=== PATIENT | female | born 1980 | race Caucasian/White ===

== ENCOUNTER 2017-09-25 07:15 | Day surgery (SDC) | payer BC ==
[~2017-09-25] VITALS: Ht 160 cm; Wt 70.0 kg
[~2017-09-25 07:15] MED LIST: ALBU18HF
[2017-09-25 07:49] VITALS: BP 120/84
[2017-09-25] MEDS ORDERED: LACTATED RINGERS 1,000 ML IV SCH (07:58)
[2017-09-25] MEDS ORDERED: LIDOCAINE 1%, 2ML SQ PRN (08:00)
[2017-09-25] MEDS ORDERED: LIDOCAINE 1%, 2ML ONE (08:04)
[2017-09-25] MEDS ORDERED: L.AC1CAP6 PO (08:16)
[2017-09-25] MEDS ORDERED: HYDR25TA11 PO (08:16)
[2017-09-25] MEDS ORDERED: PROPOFOL 50 ML ONE (08:48)
[2017-09-25] MEDS ORDERED: MIDAZOLAM 1 MG/ML, 2ML ONE ×2 (08:48→09:00)
[2017-09-25] MEDS ORDERED: ONDANSETRON 2MG/ML, 2ML ONE (09:00)
[2017-09-25] MEDS ORDERED: DEXAMETHASONE 4 MG/ML, 1ML ONE (09:00)
[2017-09-25] MEDS ORDERED: PROPOFOL 10 MG/ML, 20ML ONE (09:00)
[2017-09-25] MEDS ORDERED: KETOROLAC 30 MG/1 ML ONE (09:00)
[2017-09-25] MEDS ORDERED: GLYCOPYRROLATE 0.2MG/1ML, 5ML ONE (09:00)
[2017-09-25] MEDS ORDERED: PROMETHAZINE 25 MG/ML, 1ML IV PRN (09:30)
[2017-09-25] MEDS ORDERED: MEPERIDINE/PF 25MG/0.5ML IVPush PRN (09:30)
[2017-09-25] MEDS ORDERED: HYDROcodone/APAP 7.5-325MG/15ML UDC PO PRN (09:30)
[2017-09-25] MEDS ORDERED: DIAZEPAM 5 MG/ML, 2ML IVPush PRN (09:30)
[2017-09-25] MEDS ORDERED: OXYcodone 5 MG/5 ML ORAL.SOL UDC PO PRN (09:30)
[2017-09-25] MEDS ORDERED: ONDANSETRON 2MG/ML, 2ML IVPush PRN (09:30)
[2017-09-25] MEDS ORDERED: METOPROLOL 1 MG/ML, 5ML IV PRN (09:30)
[2017-09-25] MEDS ORDERED: HYDROmorphone 1 MG/ML, 1ML IV PRN (09:30)
[2017-09-25] MEDS ORDERED: EPHEDRINE 50 MG/ML, 1ML IVPush PRN (09:30)
[2017-09-25] MEDS ORDERED: FENTANYL PF 100 MCG/2ML IV PRN (09:30)
[2017-09-25] MEDS ORDERED: ALBUTEROL SULFATE 2.5 MG/3 ML NPPB PRN (09:30)
[2017-09-25] MEDS ORDERED: LABETALOL 5MG/ML, 20ML IV PRN (09:30)
[2017-09-25] MEDS ORDERED: hydrALAzine 20 MG/ML, 1ML IV PRN (09:30)
[2017-09-25] MEDS ORDERED: MIDAZOLAM 1 MG/ML, 2ML IV PRN (09:30)
[2017-09-25] MEDS ORDERED: ACETAMINOPHEN 325 MG TABLET PO PRN (09:30)
== END 2017-09-25 11:15 ==
LOC: OUT 07:15
PROVIDERS: ATTEND Internal Medicine Gastroenterology
DX: K29.60 Other gastritis without bleeding (principal); K31.9 Disease of stomach and duodenum, unspecified; K21.9 Gastro-esophageal reflux disease without esophagitis; K44.9 Diaphragmatic hernia without obstruction or gangrene; J45.909 Unspecified asthma, uncomplicated; F32.9 Major depressive disorder, single episode, unspecified; F17.210 Nicotine dependence, cigarettes, uncomplicated; G43.909 Migraine, unspecified, not intractable, without status migrainosus; Z90.710 Acquired absence of both cervix and uterus; Z98.890 Other specified postprocedural states; Z88.0 Allergy status to penicillin
CPT/HCPCS: 43239; 43259; 88305; J1100; J1885; J2250; J2405; J2704; J3490

== ENCOUNTER 2018-12-17 12:58 | Day surgery (SDC) | payer BC ==
[~2018-12-17] VITALS: Ht 160 cm; Wt 71.9 kg
[~2018-12-17 12:58] MED LIST changes: +HYDR25TA11 PO; +L.AC1CAP6 PO
[2018-12-17] MEDS ORDERED: LACTATED RINGERS 1,000 ML IV SCH (13:10)
[2018-12-17 13:28] VITALS: BP 111/70
[2018-12-17] MEDS ORDERED: FENTANYL PF 250 MCG/5ML ONE (14:48)
[2018-12-17] MEDS ORDERED: MIDAZOLAM 1 MG/ML, 2ML ONE (14:48)
[2018-12-17] MEDS ORDERED: DEXAMETHASONE 4 MG/ML, 1ML ONE (15:24)
[2018-12-17] MEDS ORDERED: ONDANSETRON 2MG/ML, 2ML ONE (15:24)
[2018-12-17] MEDS ORDERED: PROPOFOL 10 MG/ML, 20ML ONE (15:24)
[2018-12-17] MEDS ORDERED: SUCCINYLCHOLINE 20 MG/ML, 10ML ONE (15:24)
[2018-12-17] MEDS ORDERED: CEFAZOLIN 1,000 MG ONE (15:24)
[2018-12-17] MEDS ORDERED: BUPIVACAINE/PF-EPI 0.25% 1:200K INFIL ONE (15:51)
[2018-12-17] MEDS ORDERED: HALOPERIDOL 5 MG/ML IV PRN (16:00)
[2018-12-17] MEDS ORDERED: OXYcodone 5 MG/5 ML ORAL.SOL UDC PO PRN (16:00)
[2018-12-17] MEDS ORDERED: PROMETHAZINE 25 MG/ML, 1ML IV PRN (16:00)
[2018-12-17] MEDS ORDERED: MIDAZOLAM 1 MG/ML, 2ML IV PRN (16:00)
[2018-12-17] MEDS ORDERED: HYDROmorphone 2 MG/ML, 1ML IVPush PRN (16:00)
[2018-12-17] MEDS ORDERED: ACETAMINOPHEN 325 MG TABLET PO PRN (16:00)
[2018-12-17] MEDS ORDERED: MEPERIDINE/PF 25MG/0.5ML IVPush PRN (16:00)
[2018-12-17] MEDS ORDERED: hydrALAzine 20 MG/ML, 1ML IV PRN (16:00)
[2018-12-17] MEDS ORDERED: LABETALOL 5MG/ML, 20ML IV PRN (16:00)
[2018-12-17] MEDS ORDERED: ALBUTEROL SULFATE 2.5 MG/3 ML NPPB PRN (16:00)
[2018-12-17] MEDS ORDERED: MEPERIDINE/PF 100 MG/ML ONE ×2 (16:11→17:47)
[2018-12-17] MEDS ORDERED: FENTANYL PF 100 MCG/2ML ONE (16:27)
[2018-12-17] MEDS ORDERED: KETOROLAC 30 MG/1 ML ONE (16:27)
[2018-12-17] MEDS ORDERED: OXYcodone 5 MG/5 ML ORAL.SOL UDC ONE (16:28)
[2018-12-17] MEDS ORDERED: OXYcodone/APAP 5/325MG TABLET PO PRN (16:30)
[2018-12-17] MEDS ORDERED: ONDANSETRON 2MG/ML, 2ML IVPush PRN (16:30)
[2018-12-17] MEDS: FENTANYL PF 100 MCG/2ML IV PRN ×2 (16:30→16:52)
[2018-12-17] MEDS ORDERED: KETOROLAC 30 MG/1 ML IVPush PRN (16:30)
[2018-12-17] MEDS ORDERED: KETOROLAC 30 MG/1 ML IVPush ONE (17:00)
== END 2018-12-17 17:50 | disposition home or self-care (01) ==
LOC: OUT 12:58
PROVIDERS: ATTEND Obstetrics & Gynecology
DX: N83.02 Follicular cyst of left ovary (principal); Z88.0 Allergy status to penicillin; Z90.710 Acquired absence of both cervix and uterus
CPT/HCPCS: 58661; 88305; J0330; J0690; J1100; J1885; J2175; J2250; J2405; J2704; J3010